=== PATIENT | male | born 1975 | race Caucasian/White ===

== ENCOUNTER 2023-03-02 19:58 | Emergency (ER) | payer OTHER, SELFPAY ==
--- NOTE | ~2023-03-02 | CT_ITS ---
EXAMINATION: CT abdomen pelvis w con DATE: 03/02/2023 21:22 INDICATION: Epigastric and right upper quadrant abdominal pain, nausea TECHNIQUE: Computed tomography (CT) of the abdomen and pelvis was performed with 100 CC Omnipaque 350 intravenous contrast. Automated exposure control and iterative reconstruction technique were employe d. Exam dose: 1490.97 mGy-cm total exam DLP. COMPARISON: None. FINDINGS: The lung bases are clear. Normal heart size. No pericardial or pleural effusion. The liver, gallbladder, bile ducts, pancreas, pancreatic duct, spleen and adrenal glands are unremark able. No renal mass lesion or urinary tract calculus or hydroureteronephrosis. The urinary bladder is sedrick l. Mild prostate enlargement and calcification. Normal caliber of the abdominal aorta. No intraperitoneal or retroperitoneal or pelvic mass lesion or adenopathy or ascites is detected. There are nondilated fluid containing small bowel segments with occasional air-fluid levels which may be due to enteritis or mild adynamic ileus. Normal appendix. There is a prominent amount of fecal material in the colon. No bowel obstruction or intraperitoneal free air. Included skeletal structures are unremarkable, without suspicious osteolytic or osteoblastic lesions. IMPRESSION: Nondilated fluid containing small bowel segments with scattered air-fluid levels, which may be secondary to enteritis Normal appendix Prominent amount fecal material in the colon No bowel obstruction or free air Reviewed, dictated and finalized at [facility] Reviewed, dictated and finalized at [facility] IMPRESSION: Nondilated fluid containing small bowel segments with scattered ai r-fluid levels, which may be secondary to enteritis Normal appendix Prominent amount fecal material in the colon No bowel obstruction or free air
[2023-03-02 20:01] VITALS: BP 161/84; PULSE 92; RESP 16; TEMP 36.7; O2SAT 100
[2023-03-02 20:32] LABS: Basophils Percent Auto 0.4 % (0.2-1.2); Eosinophils Absolute Auto 0.2 K/mm3 (0-0.3); Eosinophils Percent Auto 1.3 % (0-4.4); Hematocrit 44.1 % (42.0-52.0); Hemoglobin 14.8 g/dL (14.0-18.0); Immature Granulocyte Absolute 0.02 K/mm3 (0.00-0.031); Immature Granulocyte Percent A 0.2 % (0-0.5); Lymphocytes Absolute Auto 1.19 K/mm3 (0.9-3.2); Lymphocytes Percent Auto 10.6 % (18.3-44.2); Mean Corpuscular HGB Conc 33.6 g/dl (32-36); Mean Corpuscular Hemoglobin 29.3 pg (26-34); Mean Corpuscular Volume 87.3 fl (80-100); Mean Platelet Volume 9.9 fl (7.4-10.4); Monocytes Absolute Auto 0.9 K/mm3 (0.1-0.6); Monocytes Percent Auto 7.6 % (2.6-8.5); Neutrophils Percent Auto 79.9 % (45.5-73.1); Platelet Count Result 228 k/mm3 (150-375); Red Blood Count 5.05 M/mm3 (4.6-6.20); Red Cell Distribution Width 12.3 % (11.5-14.5); White Blood Count 11.2 K/mm3 (4.5-10.0)
[2023-03-02 20:43] LABS: Alanine Aminotransferase 43 U/L (6-50); Albumin Level 4.3 g/dL (3.5-5.1); Alkaline Phosphatase 57 U/L (38-126); Anion Gap 5 mmol/L (8-16); Aspartate Amino Transferase 48 U/L (17-59); Bilirubin,Total 0.6 mg/dL (0.2-1.3); Blood Urea Nitrogen 15 mg/dL (9-20); Calcium 8.7 mg/dL (8.4-10.2); Carbon Dioxide 30 mmol/L (22-30); Chloride 102 mmol/L (98-107); Estimated CRCL calculation 112 ml/min; Estimated Glomerular Filt Rate > 60; Glucose 114 mg/dL (65-110); Lipase 42 U/L (23-300); Potassium 3.6 mmol/L (3.4-5.0); Sodium 137 mmol/L (137-145)
[2023-03-02] MEDS: MORPHINE SULFATE (*CRX) 4 MG/ML INJ IV PUSH (21:28)
[2023-03-02] MEDS: ONDANSETRON INJ 4 MG/2 ML VIAL IV PUSH (21:28)
[2023-03-02] MEDS: SODIUM CHLORIDE 0.9% IV 1,000 ML 999 ML IV CONT (21:28)
[2023-03-02 21:32] LABS: Appearance Urine Clear (Clear); Bilirubin Urine Negative (Negative); Blood Urine Negative (Negative); Color Urine Yellow (Yellow); Glucose Urine UA Negative (Negative); Ketones Urine Negative (Negative); Leukocyte Esterase Ur Negative LEU/UL (Negative); Nitrate Urine Negative (Negative); Protein Urine Negative (Negative); Specific Grav Ur 1.021 (1.001-1.035); Urobilinogen Urine 0.2 mg/dL (<2.0); pH Urine 5.5 (5.0-9.0)
[2023-03-02 21:34] LABS: Add Urine Microscopic? NO
--- NOTE | 2023-03-02 21:52 | ED.ABDPAIN ---
HPI - Abdominal Pain General Chief Complaint: Abdominal Pain Stated Complaint: abd pain Time Seen by Provider: 03/02/23 20:14 Source: patient Mode of arrival: ambulatory Limitations: no limitations History of Present Illness HPI narrative: Patient is a 47-year-old male who presents ED with report of epigastric and RUQ abdominal pain. Patient reports he developed pain last night after eating dinner. Pain persisted throughout the night. Patient then ate a chicken chilango sandwich for breakfast this morning and developed worsening pain. Pain has been constant since then. Patient felt like he had excess gas and tried taking Gas-X and Pepto-Bismol without improvement. He takes [place] chronically for back pain and has taken this today as well without improvement. He reports nausea, denies vomiting. Denies diarrhea or constipation. He states he had 2 bowel movements today. Denies fevers. Denies urinary symptoms. 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 Related Data Allergies Allergy/AdvReac Type Severity Reaction Status Date / Time No Known Allergies Allergy Verified 03/02/23 19:59 Review of Systems Review of Systems: CONSTITUTIONAL: Denies fever, chills, or sweats. CARDIOVASCULAR: Denies chest pain. RESPIRATORY: Denies dyspnea. GASTROINTESTINAL: See HPI. GENITOURINARY: Denies dysuria or hematuria. SKIN: Denies rash or itching. MUSCULOSKELETAL: Denies back pain, joint pain, or myalgia. All systems reviewed & are unremarkable except as noted in HPI and below Exam Narrative: GENERAL: Well appearing, obese with BMI of 36.9, non-toxic, in no acute distress. HEAD: Normocephalic, atraumatic. NECK: Supple. No adenopathy, no masses. RESPIRATORY: Airway patent, respirations nonlabored. Clear to auscultation bilaterally, no rales, rhonchi, wheezing. CARDIOVASCULAR: Regular rate and rhythm without murmurs, rubs, or gallops. Peripheral pulses 2+ and equal bilaterally. ABDOMINAL: Soft, tenderness in epigastric region, minimal tenderness in right upper quadrant, no other significant focal tenderness throughout abdomen. Nondistended, no hepatosplenomegaly. Normoactive BS. MUSCULOSKELETAL: Moves all extremities. Strength/ROM intact without gross deformities. SKIN: Warm, dry, normal color. No rashes. NEURO: A&O X3. Speech clear. Cranial nerves II-XII grossly intact. Steady gait. No ataxic movements. PSYCHIATRIC: Appropriate mood and affect. Normal interaction. Course Vital Signs Vital signs: Vital Signs Temperature 98.1 F 03/02/23 20:01 Pulse Rate 92 03/02/23 20:01 Respiratory Rate 16 03/02/23 20:01 Blood Pressure 161/84 H 03/02/23 20:01 Pulse Oximetry 100 03/02/23 20:01 Oxygen Delivery Room Air 03/02/23 20:01 Temperature 98.1 F 03/02/23 20:01 Pulse Rate 92 03/02/23 20:01 Respiratory Rate 16 03/02/23 20:01 Blood Pressure 161/84 H 03/02/23 20:01 Pulse Oximetry 100 03/02/23 20:01 Oxygen Delivery Room Air 03/02/23 20:01 MDM - Abdominal Pain MDM Narrative Medical decision making narrative: Patient presented to ED with epigastric and right upper quadrant abdominal pain, sent from urgent care to rule out gallbladder etiology. Patient's vital stable upon arrival. Afebrile. Patient in no acute distress. CBC with leukocytosis of 11.2. CMP unremarkable. Normal LFTs and lipase. Urinalysis negative. CT scan of abdomen pelvis obtained and showing findings consistent with enteritis, large amount of stool throughout the colon. No bowel obstruction. Normal appendix and gallbladder. Patient was updated on lab and imaging findings. He is feeling better with supportive therapy. He was given GI cocktail as well as Bentyl, and reported significant improvement with these medications. Discussed possibility of gastritis, acid reflux contributing to symptoms. Will prescribe omeprazole. Also discussed constipation management as patient is on [place] therapy due to chronic back pa
[2023-03-02] MEDS: DICYCLOMINE HCL 10 MG CAPSULE 20 MG PO (22:18)
[2023-03-02] MEDS: BELLADONNA ALK/PHENOB ELIX 10 ML, MAG HYDROX/ALUMINUM HYD/SIMETH 30 ML, LIDOCAINE HCL 2... PO (22:18)
== END 2023-03-02 23:10 | disposition home or self-care (01) ==
PROVIDERS: Preventive Medicine Aerospace Medicine; Emergency Provider Physician Assistant; PCP Internal Medicine Infectious Disease
DX: K52.9 Noninfective gastroenteritis and colitis, unspecified (principal); K59.00 Constipation, unspecified
CPT/HCPCS: 36415; 74177; 80053; 81003; 83690; 85025; 96361; 96374; 96375; 99284; A9270; J2270; J2405; J7030; Q9967

== ENCOUNTER 2024-08-28 15:52 | Emergency (ER) | payer OTHER, BC, SELFPAY ==
[2024-08-28 16:39] VITALS: BP 143/102; PULSE 84; RESP 18; TEMP 36.4; O2SAT 99
[2024-08-28] MEDS: TETANUS,DIPHTHERIA,AC PERTUSSIS ADULT (0.5 ML) BOOSTRIX IM (18:22)
[2024-08-28] MEDS: AMOXICILLIN/CLAVULANATE K 875-125 MG TAB 1 TABLET PO (18:23)
--- NOTE | 2024-08-28 19:02 | ED.ANIMALBIT ---
HPI - Animal Bite General Chief Complaint: Animal Bite Stated Complaint: dog bite Time Seen by Provider: 08/28/24 17:11 History of Present Illness HPI narrative: Patient is 48-year-old male who presents to the ER after being bit in the mouth by a dog prior to arrival. He reports the dog bit him in the mouth and punctured the gumline she on his lower, inner jaw. Patient is unsure when his last tetanus shot was administered. He is also unsure whether not the dog is up-to-date on vaccinations, but the dog is showing no signs of rabies. Patient denies any other medical history related to this ER visit. He denies any other wounds on his body, recent fevers, recent signs/symptoms of illness or infection, headache, facial trauma. Related Data Home Medications ?Medication ?Instructions ?Recorded ?Confirmed ?Last Taken ?Type alprazolam 0.5 mg tablet (Xanax) 0.5 mg PO QHS PRN 08/25/24 08/25/24 Unknown History hydrochlorothiazide 25 mg tablet 25 mg PO DAILY 08/25/24 08/25/24 Unknown History hydrocodone 10 mg-acetaminophen 1 tablet PO QHS PRN 08/25/24 08/25/24 Unknown History 300 mg tablet lamotrigine 100 mg tablet 100 mg PO DAILY 08/25/24 08/25/24 Unknown History lisdexamfetamine 60 mg capsule 60 mg PO DAILY 08/25/24 08/25/24 Unknown History (Vyvanse) pantoprazole 20 mg tablet,delayed 20 mg PO QAM 08/25/24 08/25/24 Unknown History release rivaroxaban 20 mg tablet (Xarelto) 20 mg PO DAILY 08/25/24 08/25/24 Unknown History Allergies Allergy/AdvReac Type Severity Reaction Status Date / Time semaglutide (From [place]) AdvReac Intermediate Abdominal Verified 08/28/24 16:40 Pain Review of Systems Review of Systems: All systems reviewed & are unremarkable except as noted in HPI and below PMFSH Past Medical History Medical History Pulmonary embolism Dvt femoral (deep venous thrombosis) Social History Social History Smoking status: Current some day smoker Tobacco type: e-cigarettes/vaping Alcohol intake: never Substance use: current Substance use type: marijuana Do You Feel Safe in your Home?: Yes Lack of Transportation: No Lack of Food: Sometimes True Current Housing: I Have Housing Concerned About Future Housing: No Difficulty Paying Gas/Electric Bills: YES Difficulty Paying for Meds: No Currently Unemployed: No Education: High School Diploma/GED Difficulty w/ Childcare or Family Care: No Exam Narrative: GENERAL: Well appearing, well-nourished, non-toxic, in no acute distress. HEAD: Normocephalic, R inner lip puncture wound, bleeding controlled. NECK: Supple. No adenopathy, no masses. RESPIRATORY: Airway patent, respirations nonlabored. Clear to auscultation bilaterally, no rales, rhonchi, wheezing. CARDIOVASCULAR: Regular rate and rhythm without murmurs, rubs, or gallops. Peripheral pulses 2+ and equal bilaterally. ABDOMINAL: Soft, nontender, nondistended, no hepatosplenomegaly. Normoactive BS. MUSCULOSKELETAL: Moves all extremities. Strength/ROM intact without gross deformities. SKIN: Warm, dry, normal color. No rashes. NEURO: A&O X3. Speech clear. Cranial nerves II-XII grossly intact. Steady gait. No ataxic movements. PSYCHIATRIC: Appropriate mood and affect. Normal interaction. Course Vital Signs Vital signs: Vital Signs Temperature 36.4 C 08/28/24 16:39 Pulse Rate 84 08/28/24 16:39 Respiratory Rate 18 08/28/24 16:39 Blood Pressure 143/102 H 08/28/24 16:39 Pulse Oximetry 99 08/28/24 16:39 Temperature 36.4 C 08/28/24 16:39 Pulse Rate 84 08/28/24 16:39 Respiratory Rate 18 08/28/24 16:39 Blood Pressure 143/102 H 08/28/24 16:39 Pulse Oximetry 99 08/28/24 16:39 MDM - Animal Bite MDM Narrative Medical decision making narrative: Patient is 48-year-old male who presents to the ER after being bit in the mouth by a dog prior to arrival. He reports the dog bit him in the mouth and punctured the gumline she on his lower, inner jaw. Patient is unsure when his last tetanus shot was administered. He is also unsure whether not the dog is up-to-date on vaccinations, but the dog is showing no signs of rabies. Patient denies any other medical history related to this ER visit. He denies any other wounds on his body, recent fevers, recent signs/symptoms of illness or infection, headache, facial trauma. Labs Ordered: None necessary Imaging Ordered: None necessary Medications given: Augmentin p.o., tetanus immunization Diagnosis: Dog bite Patient Education/Shared MDM: Results of examination shared with patient. He will be given his 1st dose of Augmentin here in the ER and tetanus vaccine. Patient should follow-up with his primary care provider with any concerning or worsening symptoms. Patient did complete his full dose of antibiotics at home. Pt and his significant other verbalized understanding and are agreement with plan for discharge. Vital Signs stable at time of discharge. All questions answered. Differential Diagnosis Differential diagnosis: Likely bite by animal, dog bite and rabies contact Discharge Plan Discharge Clinical Impression: Bite by animal, Dog bite Patient Disposition: Home, Self-Care Condition: Stable Instructions: Antibiotic Form, Animal Bite (ED) Additional Instructions: Please return to the ER with an worsening symptoms. Follow-up with primary care provider as needed. Take all medications as prescribed (stop taking your current amoxicillin and complete Augmentin until prescription complete). Patient Language: Kazakh Prescriptions: New amoxicillin-pot clavulanate 875-125 mg tablet 1 tablet PO Q12H Qty: 20 0RF No Action Xarelto 20 mg tablet 20 mg PO DAILY Rx Instructions: must administer with evening meal hydrochlorothiazide 25 mg tablet 25 mg PO DAILY lisdexamfetamine [Vyvanse] 60 mg capsule 60 mg PO DAILY lamotrigine 100 mg tablet 100 mg PO DAILY hydrocodone-acetaminophen 10-300 mg tablet 1 tablet PO QHS PRN alprazolam [Xanax] 0.5 mg tablet 0.5 mg PO QHS PRN pantoprazole 20 mg tablet,delayed release (DR/EC) 20 mg PO QAM ketorolac 10 mg tablet 10 mg PO Q8H PRN (Reason: pain) 5 Days Qty: 20 0RF Rx Instructions: maximum total duration of 5 days from all oral, intranasal, or parenteral formulations prednisone 50 mg tablet 50 mg PO DAILY 5 Days Qty: 5 0RF Follow-up/Referrals: Jesu,Michelle Candelaria [Primary Care Provider] - Time of Disposition: 19:09
--- NOTE | 2024-08-28 19:05 | PC.NURSE ---
Pt. upset with wait for d/c instructions and left ED prior to receiving them.
--- OUTSIDE RECORDS SUMMARY | 2024-09-02 09:21 | XMS_ITS | Referral Summary ---
Author Organization [facility] Address [address] [place] [address] Care Team Providers Care Director Of Enterprise Strategy Name Role Phone Unknown, Notinfile Unavailable Unavailable Genie Garcia MD Primary Care Provider [phone] Allergies No known active allergies Medications metoclopramide (REGLAN) 10 mg tablet Take 1 tablet (10 mg total) by mouth 2 (two) times a day Take 1 tablet before meals. 10 tablet 9 Active clonazePAM (KlonoPIN) 1 mg tablet Take 1 tablet (1 mg total) by mouth 2 (two) times a day for 10 days 20 tablet 9 Active famotidine (PEPCID) 40 mg tablet Take 1 tablet (40 mg total) by mouth nightly 20 tablet 9 Active valACYclovir (VALTREX) 1 gram tablet Take 1,000 mg by mouth daily 2 Active traZODone (DESYREL) 50 mg tablet trazodone 50 mg tablet TK 1 TO 2 TS PO HS Active prazosin (MINIPRESS) 1 mg capsule TAKE 1-2 CAPSULES BY MOUTH AT BEDTIME DIRECTED 2 Active Vyvanse 60 mg capsule Take 60 mg by mouth every morning 2 Active lidocaine (LIDODERM) 5 % USE 1 TO 2 PATCHES EXTERNALLY ONCE DAILY NEEDED 2 Active lamoTRIgine (LaMICtal) 25 mg tablet TAKE 1 TABLET BY MOUTH DAILY [id number], THEN INCREASE TO 2 TABLETS DAILY 2 Active cyclobenzaprine (FLEXERIL) 10 mg tablet TAKE 1 TABLET BY MOUTH EVERY 8 TO 12 HOURS NEEDED 2 Active tadalafiL (CIALIS) 5 mg tablet Take 1 tablet (5 mg total) by mouth daily 90 tablet 2 2 Active clomiPHENE (CLOMID) 50 mg tablet Take 1 tablet (50 mg total) by mouth every morning q am, as dir 30 tablet 5 2 Active Xarelto 20 mg tablet 2 Active HYDROcodone-aceta minophen (NORCO) 10-325 mg per tablet TAKE 1 TABLET BY MOUTH EVERY 6 TO 8 HOURS NEEDED 2 Active Aimovig Autoinjector 140 mg/mL auto-injector INJECT 140MG UNDER THE SKIN ONCE MONTHLY 2 Active clonazePAM (KlonoPIN) 1 mg tablet Take by mouth 2 (two) times a day as needed 2 Active desvenlafaxine ER 50 mg 24 hr tablet [address] (PROTONIX) 40 mg EC tablet Take 40 mg by mouth daily 2 Active mirabegron ER (Myrbetriq) 50 mg tablet extended release 24 hr Take 1 tablet (50 mg total) by mouth daily 90 tablet 3 2 Active Active Problems Problem Noted Date Diagnosed Date Acne vulgaris 05/24/2022 Hypertensive disorder 05/24/2022 Sexually transmitted disease 05/24/2022 Venous thrombosis 05/24/2022 Viral hepatitis C 05/24/2022 Hypogonadism in male 05/24/2022 Infertility male 05/24/2022 Overactive bladder 04/12/2022 DVT, recurrent, lower extremity, chronic 015 Pulmonary embolism 11/21/2014 Social History Tobacco Use Types Packs/Day Years Used Date Smoking Tobacco: Former Cigarettes Tobacco Cessation:Counseling Given: Not Answered Sex and Gender Information Value Date Recorded Sex Assigned at Not on file Legal Sex Male 11:35 PM FLAME CHANNELER Gender Identity Not on file Sexual Orientation Not on file Last Filed Vital Signs Vital Sign Reading Time Taken Comments Blood Pressure 103/63 10/17/2018 12:30 AM FLAME CHANNELER Pulse 62 10/17/2018 12:30 AM FLAME CHANNELER Temperature 36.6 ??C (97.9 ??F) 10/16/2018 8:19 PM CS T Respiratory Rate 16 10/17/2018 12:30 AM FLAME CHANNELER Oxygen Saturation 100% 10/17/2018 12:30 AM FLAME CHANNELER Inhaled Oxygen Concentration - - Weight 90.7 kg (200 lb) 10/16/2018 8:19 PM FLAME CHANNELER Height 175.3 cm (5' 9 ) 10/16/2018 8:19 PM FLAME CHANNELER Body Mass Index 29.53 10/16/2018 8:19 PM FLAME CHANNELER Plan of Treatment Not on file Insurance [facility] UHC CHOICE PLUS CIGNA ALLEGIANCE CIG[employer] Care Teams Director Of Enterprise Strategy Relationship Specialty [place] [address] [place] [address] PCP - General Internal Medicine 04/06/24 Unknown, Notinfile 03/18/22
--- OUTSIDE RECORDS SUMMARY | 2024-09-02 09:21 | XMS_ITS | CONTINUITY OF CARE DOCUMENT ---
Author Name josseline manjarrez Address Unknown Organization [facility] Address [address] [place] [address] Phone [phone] Care Team Providers Care Supervisor Inspection Room Name Role Phone Marcello Orourke MD Unavailable [phone] DM NAGEL MD Unavailable KEYA SAINZ MD Unavailable [phone] INSURANCE PROVIDERS Payer name Policy type / Coverage type [place] red constitution party ID [facility] Arara [id number]
--- OUTSIDE RECORDS SUMMARY | 2024-09-02 09:21 | XMS_ITS | Clinical Summary ---
Author Organization [facility] Address [address] [address] Phone Care Team Providers Care Aviation Program Manager Name Role Phone Bari Nails MD Primary Care Provider Allergies No known active allergies Medications hydroCHLOROthiaz izzy 12.5 MG Tablet Take 1 tablet every day by oral route in the morning. Active Aimovig 140 MG/ML Solution Auto-injector Inject 140 mg as needed by subcutaneous route as directed. Active Xarelto 20 MG Tablet Take 1 Tablet by mouth daily. Active valACYclovir (VALTREX) 1 GM Tablet TAKE 1 TABLET BY MOUTH EVERY DAY DIRECTED Active Nurtec 75 MG TABLET DISPERSIBLE DISSOLVE 1 TABLET ON THE TONGUE EVERY DAY NEEDED Active lidocaine (LIDODERM) 5 % Patch UNWRAP AND APPLY 1 TO 2 PATCHES EVERY DAY NEEDED Active HYDROcodone-acet aminophen (NORCO) 10-325 MG Tablet TAKE 1 TABLET BY MOUTH EVERY 8 TO 12 HOURS NEEDED FOR LOWER BACK PAIN Active pantoprazole (PROTONIX) 40 MG Tablet Delayed Response take 1 tablet by mouth every day as directed 022 Active Vyvanse 60 MG CapsuleIndicatio ns:Attention Deficit Hyperactivity Disorder Take 1 Capsule by mouth daily. Indications: Attention Deficit Hyperactivity Disorder 30 Capsule 024 Active Vyvanse 60 MG CapsuleIndicatio ns:Attention Deficit Hyperactivity Disorder Take 1 Capsule by mouth daily. Indications: Attention Deficit Hyperactivity Disorder 30 Capsule 024 Active Vyvanse 60 MG CapsuleIndicatio ns:Attention Deficit Hyperactivity Disorder Take 1 Capsule by mouth daily. Indications: Attention Deficit Hyperactivity Disorder 30 Capsule Active ALPRAZolam (XANAX) 0.5 MG TabletIndication s:Generalized anxiety disorder Take 1 Tablet by mouth 3 times daily as needed for Anxiety. 90 Tablet 3 Active lamoTRIgine (LaMICtal) 100 MG Tablet Take 1 Tablet by mouth daily. 30 Tablet 3 Active Lisdexamfetamine Dimesylate 60 MG CapsuleIndicatio ns:Attention Deficit Hyperactivity Disorder Take 1 Capsule by mouth daily for 30 days. Indications: Attention Deficit Hyperactivity Disorder 30 Capsule 025 2024 Active Lisdexamfetamine Dimesylate 60 MG CapsuleIndicatio ns:Attention Deficit Hyperactivity Disorder Take 1 Capsule by mouth daily for 30 days. Indications: Attention Deficit Hyperactivity Disorder 30 Capsule 025 2024 Active Lisdexamfetamine Dimesylate 60 MG CapsuleIndicatio ns:Attention Deficit Hyperactivity Disorder Take 1 Capsule by mouth daily for 30 days. Indications: Attention Deficit Hyperactivity Disorder 30 Capsule 025 2024 Active prazosin (MINIPRESS) 1 MG Capsule Take 1 Capsule by mouth nightly. Uses PRN 30 Capsule 2 Active ALPRAZolam (XANAX) 0.5 MG TabletIndication s:Generalized anxiety disorder Take 1 Tablet by mouth 3 times daily as needed for Anxiety. 90 Tablet 3 024 2024 Discontinued(R eorder) lamoTRIgine (LaMICtal) 100 MG Tablet Take 1 Tablet by mouth daily. 30 Tablet 3 024 2024 Discontinued(R eorder) prazosin (MINIPRESS) 1 MG Capsule Take 1 Capsule by mouth nightly. 30 Capsule 3 024 2024 Discontinued buPROPion (WELLBUTRIN) 150 MG XL tablet Take 1 Tablet by mouth every morning. 90 Tablet 024 2024 Discontinued(S izzy effects) Active Problems Problem Noted Date Diagnosed Date Attention deficit hyperactivity disorder, combin ed type 05/20/2023 Generalized anxiety disorder 08/30/2021 Mixed bipolar I disorder 04/12/2021 Encounters Date Type Department Care Team Description 08/29/2024 Refill [facility] [address] [place] [address] [phone] Mona Vaz APRN, CNP Medication Refill 08/26/2024 11:00 AM COKE INSPECTOR Office Visit [facility] [address] [place] [address] [phone] Mona Vaz APRN, BARI Mixed bipolar I disorder (HCC) (Primary Dx); Generalized anxiety disorder; Attention deficit hyperactivity disorder (ADHD), predominantly inattentive type 08/26/2024 Travel 07/27/2024 Telephone [facility] [address] [place] [address] [phone] Mona Vaz APRN, CNP 07/14/2024 Telephone [facility] [address] [place] [address] [phone] Mona Vaz APRN, BARI from Last 3 Months Family History Medical History Relation Name Comments Attention Deficit Hyperactivity Disorder Brother Attention Deficit Hyperactivity Disorder Daughter x3 Alcohol Abuse Father Suicide Attempts Father suicide Alcohol Abuse Maternal Grandfather Alcohol Abuse Maternal Grandmother Anxiety disorder Mother Attention Deficit Hyperactivity Disorder Mother Depression Mother Diabetes Mother Alcohol Abuse Paternal Grandfather Heart Disease Paternal Grandfather Alcohol Abuse Paternal Grandmother Relation Name Status Comments Brother Daughter x3 Alive Father Maternal Grandfather Maternal Grandmother Mother Paternal Grandfather Paternal Grandmother Social History Tobacco Use Types Packs/Day Years Used Date Smoking Tobacco: Former Cigarettes Q uit: 2018 Smokeless Tobacco: Never Tobacco Cessation:Counseling Given: Not Answered Alcohol Use Standard Drinks/Week Comments Not Currently 0 (1 standard drink = 0.6 oz pur e alcohol) PHQ-2 Answer Date Recorded Total Score - Questions 1-9 10 05/11 Sexually Active Control Partners Comments Yes Sex and Gender Information Value Date Recorded Sex Assigned at Not on file Legal Sex Male 1:47 PM CDT Gender Identity Male 02/23/2024 1:47 PM CDT Sexual Orientation Straight 02/23/2024 1: 47 PM CDT Last Filed Vital Signs Vital Sign Reading Time Taken Comments Blood Pressure 146/83 08/26/2024 11:21 AM COKE INSPECTOR Pulse 93 08/26/2024 11:11 AM COKE INSPECTOR Temperature - - Respiratory Rate 20 08/26/2024 11:11 AM COKE INSPECTOR Oxygen Saturation 100% 08/26/2024 11:11 AM COKE INSPECTOR Inhaled Oxygen Concentration - - Weight 97.5 kg (215 lb) 08/26/2024 11:11 AM COKE INSPECTOR Height 175.3 cm (5' 9 ) 08/26/2024 11:11 AM COKE INSPECTOR Body Mass Index 31.75 08/26/2024 11:11 AM COKE INSPECTOR Plan of Treatment Upcoming Encounters Date Type Department Care Team (Late st Contact Info) Description 11/25/2024 10:45 AM CDT Office Visit [facility] [address] [place] [address] [phone] Mona Vaz, BUSINESS SERVICES SPECIALIST SALES, BENCH WORKER [address] [place] [address] [phone] (Work) Health Maintenance Due Date Last Done Comments Hepatitis C Virus (HCV) Screening 1975 Hepatitis B Immunization (2 of 3 - 19+ 3-dose series) 12/06/2015 11/08/2015 Colonoscopy 2021 Colorectal Cancer Screening 2021 SARS-COV-2 Immunization ( season) 2024 05/18/2023, 06/07/2022, 05/13/2022, Additional history exists Respiratory Syncytial Virus (RSV) Immunization (Adult) (1 - 1-dose 75+ series) 12/20/2051 TdaP Immunization Completed 11/09/2018, , 08/11/2008 Influenza Immunization Completed , 04/19/2023, 06/07/2022, Additional history exists Meningococcal Immunization (ACWY) Aged Out No longer eligible based on patient's age to complete this topic Pneumococcal Immunization Combined Aged Out No longer eligible based on patient's age to complete this topic Rotavirus Immunization Aged Out No lo nger eligible based on patient's age to complete this topic Insurance CIGNA [facility] Care Teams Aviation Program Manager Relationship Specialty [place] [address] [place] [id number] PCP - General Internal Medicine 05/21/24
--- OUTSIDE RECORDS SUMMARY | 2024-09-02 09:21 | XMS_ITS | Clinical Summary ---
Author Organization [facility] Address [address] [place] [address] Care Team Providers Care Mat Sewer Name Role Phone Unknown, Notinfile Unavailable Unavailable Genie Garcia MD Primary Care Provider [phone] Allergies No known active allergies Medications metoclopramide [...] tablet TAKE 1 TABLET BY MOUTH DAILY [id number], THEN INCREASE TO 2 TABLETS DAILY 2 [...] lower extremity, chronic 015 Pulmonary embolism 11/21/2014 Medical History Medical History Date Comments DVT (deep vein thrombosis) in x5 PE (pulmonary thromboembolism) (CMS/HCC) ([facility]) x2 Social History Tobacco Use Types Packs/Day Years Used Date Smoking Tobacco: Former Cigarettes Tobacco Cessation:Counseling Given: Not Answered Sex and Gender Information Value Date Recorded Sex Assigned at Not on file Legal Sex Male 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 Gender Identity Not on file Sexual Orientation Not on file Obstetrics History Last Filed Vital Signs Vital Sign Reading Time Taken Comments Blood Pressure 103/63 10/17/2018 12:30 AM GANG DRILL OPERATOR Pulse 62 10/17/2018 12:30 AM GANG DRILL OPERATOR Temperature 36.6 ??C (97.9 ??F) 10/16/2018 8:19 PM CS T Respiratory Rate 16 10/17/2018 12:30 AM GANG DRILL OPERATOR Oxygen Saturation 100% 10/17/2018 12:30 AM GANG DRILL OPERATOR Inhaled Oxygen Concentration - - Weight 90.7 kg (200 lb) 10/16/2018 8:19 PM GANG DRILL OPERATOR Height 175.3 cm (5' 9 ) 10/16/2018 8:19 PM GANG DRILL OPERATOR Body Mass Index 29.53 10/16/2018 8:19 PM GANG DRILL OPERATOR Plan of Treatment Health Maintenance Due Date Last Done Comments Colon Cancer Screening-Colonoscopy 1976 Depression Screening 1976 Pneumococcal vaccine <65 (1 of 2 - PCV) 1982 Regular Well Visit/Exam 18-64 1994 Covid-19 Vaccine (2023-2 5 season) 2024 08/13/2021, 08/02/2021, 10/12/2020, Additional history exists Influenza Vaccine (#1) 2024 , 04/20/2018, 05/15/2017, Additional history exists DTaP/Tdap/Td Vaccine (4 - Td or Tdap) 11/09/2028 11/09/2018, 03/29/2015, 08/11/2008 Hepatitis C Screening Completed 05/24/2022 Insurance [facility] CHO[facility] PLUS CIGNA ALLEGIANCE [facility] [place] [address] Care Teams Mat Sewer Relationship Specialty [place] [address] [place] [address] PCP - General Internal Medicine 04/06/24 Unknown, Notinfile 03/18/22
--- OUTSIDE RECORDS SUMMARY | 2024-09-02 09:21 | XMS_ITS | Continuity of Care Document ---
Author Organization [facility] Address [address] [place] [address] Phone Care Team Providers Care District Captain Name Role Phone Edmundo Robison Unavailable Unavailable Advance Directives Directive Yes / No Effective Date File Name No Information Encounters Encounter Description Practice Location Reason(s) For Visit Diagnoses Date Provider Providers Copied on Encounter [facility], [address] [place] [address], [facility], tel:[phone] *[facility] No Information Enriqueta Wyatt. [address] [place] [address], [facility], [place]. tel:[phone] Family History Family Member Type Diagnosis Age At Onset No Information Payers Payer name Insurance type Covered democrat ID Authoriza tion(s) No Information Social History Type Description Quantity Date Captured Comments Sex Male Smoking Status No Information Chief Complaint And Reason For Visit No Information Reason For Referral Reason For Referral No Information History Of Present Illness Encounter Date Complaint History Of Prese nt Illness No Information Functional Status Date Functional Assessmen t No Information Instructions Date Instruction Additional Infor mation No Information Assessments Type Assessment Date No Information Patient Care Teams Name Effective Dates (start - stop) Status Members No Information
--- OUTSIDE RECORDS SUMMARY | 2024-09-02 09:21 | XMS_ITS | Clinical Summary ---
Author Organization [employer] [facility] Address [address] [address] Care Team Providers Care Automobile Taillight Assembler Name Role Phone Genie Garcia MD Primary Care Provider [phone] Allergies Active Allergy Reactions Criticality Noted Date Comments Semaglutide (Weight Loss) Abdominal Pain Low 04/30/2024 Elevation in lipase. Mild pancreatitis suspected. Medications erenumab-aooe (Aimovig Autoinjector) 140 mg/mL Auto-Injector Inject 140 mg by subcutaneous injection one time only. 03/15/20 22 Active HYDROcodone-ac etaminophen (NORCO) 10-325 mg Tablet Take 1 Tablet by mouth every 8 hours as needed. Pt takes 3 times a day 03/22/20 22 Active valACYclovir (VALTREX) 1 gram tablet Take 1,000 mg by mouth daily. 04/15/20 22 Active lisdexamfetami ne (Vyvanse) 60 mg capsule Take 60 mg by mouth daily in the morning. 05/04/20 22 Active testosterone cypionate (DEPO-TESTOSTE RAI) 200 mg/mL Oil Inject 200 mg by intramuscular injection every 2 weeks. Pt will restart after seeing urologist Active lidocaine (LIDODERM) 5 % Adhesive Patch, Medicated Apply 1 Patch to affected area 1 time daily as needed. Pt uses as needed states maybe monthly 04/19/20 22 Active rimegepant (Nurtec ODT) 75 mg Tablet, Rapid Dissolve Take 50 mg by mouth 1 time daily as needed. As needed with migraine Active betamethasone, augmented (DIPROLENE-AF) 0.05 % CreamIndicatio ns:Eczema, unspecified type Apply to affected area 2 times daily. 60 Gram 08/24/20 23 Active lamoTRIgine (LaMICtal) 100 mg tablet Take 100 mg by mouth daily. Active cyclobenzaprin e (FLEXERIL) 10 mg tablet Take 1 Tablet by mouth 2 times daily. 01/16/20 24 Active mirabegron (MYRBETRIQ) 50 mg Extended Release 24 hour tabletIndicati ons:Urinary frequency,Noct uria Take 1 Tablet (50 mg) by mouth daily. 30 Tablet 1 03/02/20 24 Active ALPRAZolam (XANAX) 0.25 mg tablet Take 1 Tablet by mouth 3 times daily. 02/13/20 24 Active pantoprazole sodium (PANTOPRAZOLE ORAL) Take by mouth. Activ e folic acid/multivit- min/lutein (CENTRUM SILVER ORAL) Take by mouth. Ac tive pantoprazole (PROTONIX) 40 mg Tablet, Delayed Release (E.C.) take 1 tablet by mouth every day as directed 90 Tablet 3 05/19/20 Active fluticasone propionate (FLONASE) 50 mcg/spray [place], Suspension nasal inhalerIndicat ions:Acute non-recurrent maxillary sinusitis Administer 2 Sprays in each nostril daily. 16 Gram 08/16/19 25 Active Xarelto 20 mg TabletIndicati ons:History of pulmonary embolism TAKE 1 TABLET BY MOUTH DAILY WITH SUPPER. 90 Tablet 1 08/17/19 25 Active rivaroxaban (Xarelto) 20 mg TabletIndicati ons:History of pulmonary embolism Take 1 Tablet (20 mg) by mouth daily with supper. 90 Tablet 1 02/13/20 24 2024 Discontinued amoxicillin (AMOXIL) 875 mg tabletIndicati ons:Acute non-recurrent maxillary sinusitis Take 1 Tablet (875 mg) by mouth every 12 hours for 10 days. 20 Tablet 08/16/19 25 2024 Active Problems Problem Noted Date Diagnosed Date Hx of migraine headaches 04/04/2023 Eczema 04/04/2023 Mixed anxiety and depressive disorder 04/03/2023 History of pulmonary embolism 04/03/2023 Overview (04/03/2023): two episodes. 2000 after 11 months interferon for Hep C. 2nd occurence 2010 - spontaneous. Attention deficit disorder (ADD) in adult 2022 Spondylosis of lumbar region without myelopathy or radiculopathy 04/03/2023 Current every day vaping 04/03/2023 History of hepatitis C 04/03/2023 Overview (04/03/2023): levels undeterctable since treatment in 1999. Hypertensive disorder 05/24/2022 Hypogonadism in male 05/24/2022 Overactive bladder 04/12/2022 Resolved Problems Problem Noted Date Diagnosed Date Resolved Date Pulmonary embolism 11/21/2014 Encounters Date Type Department Care Team Description 09/01/2024 Refill [facility] [place] [address] [place] [address] Genie Garcia MD 08/17/2024 1:40 PM HEALTH EDUCATION SPECIALIST Procedure visit [facility] [place] [address] [place] [address] Issue of repeat prescription (Primary Dx) 08/16/2024 1:30 PM HEALTH EDUCATION SPECIALIST Video Visit [facility] [address] [place] [address] Blessing Marti, RITA Acute non-recurrent maxillary sinusitis (Primary Dx); Current every day vaping 08/16/2024 Refill [facility] [address] [place] [address] Genie Garcia MD History of pulmonary embolism 1999 and 2009. 06/30/2024 Refill [facility] [place] [address] [place] [address] Genie Garcia MD 06/14/2024 External Device Data [facility] ABSTRACTION Provider, Abstract 06/09/2024 External Device Data [facility] Provider, Abstract from Last 3 Months Immunizations Immunization Administration Dates Next Due INFLUENZA VACCINE TRIVALENT SPLIT VIRUS, (6 MOS UP), 0.5ML (PF), IM 05/12/2024 Family History Medical History Relation Name Comments Alcohol abuse Father Suicidality Father Arthritis Mother Diabetes Mother Relation Name Status Comments Daughter 1 Alive Daughter 2 Alive Daughter 3 Alive Daughter 4 Alive Daughter 5 Alive Father Half-Brother 1 Alive Half-Brother 2 Alive Maternal Grandfather Maternal Grandmother Alive Mother Alive Paternal Grandfather Paternal Grandmother Alive Son Alive Social History Tobacco Use Types Packs/Day Years Used Date Smoking Tobacco: Former Cigarettes Smokeless Tobacco: Never Tobacco Cessation:Counseling Given: No Alcohol Use Standard Drinks/Week Comments Never 0 (1 standard drink = 0.6 oz pur e alcohol) Sex and Gender Information Value Date Recorded Sex Assigned at Male 04/08/2023 7:29 PM CDT Legal Sex Male 2:53 PM CDT Gender Identity Male 04/08/2023 7:29 PM CDT Sexual Orientation Straight 04/08/2023 7: 29 PM CDT Last Filed Vital Signs Vital Sign Reading Time Taken Comments Blood Pressure 128/78 04/01/2024 10:30 AM CDT Pulse 116 04/01/2024 10:30 AM CDT Temperature 36.7 ??C (98 ??F) 04/01/2024 10:30 AM CDT Respiratory Rate 18 04/01/2024 10:30 AM CDT Oxygen Saturation 98% 04/01/2024 10:30 AM CDT Inhaled Oxygen Concentration - - Weight 94.3 kg (208 lb) 04/01/2024 10:30 AM CDT Height 175.3 cm (5' 9 ) 04/01/2024 10:30 AM CDT Body Mass Index 30.72 04/01/2024 10:30 AM CDT Plan of Treatment Upcoming Encounters Date Type Department Care Team (Late st Contact Info) Description 09/07/2024 2:30 PM HEALTH EDUCATION SPECIALIST Office Visit [facility] [place] [address] [place] [address] Genie Garcia MD [address] [email or web address] [address] 09/14/2024 10:30 AM HEALTH EDUCATION SPECIALIST Office Visit [facility] [place] [address] [place] [address] Genie Garcia MD [address] [place] [id number] Health Maintenance Due Date Last Done Comments Pre-Diabetes and Diabetes Screening 1976 HEPATITIS B VACCINES (1 of 3 - 19+ 3-dose series) 12/20/1995 COLORECTAL SCREENING 2021 FIT-DNA Q 3 years 2021 FIT/FOBT Q 1 year 2021 Flex Sig/CT Colonography Q 5 years 2021 Colorectal Cancer Screening 02/03/2025 Postponed from 2021 (Patient Refused) DTAP/TDAP/TD VACCINES (2 - T d or Tdap) 03/29/2025 03/29/2015 INFLUENZA VACCINE Completed 05/12/2024, 05/11/2013, 08/11/2012 Insurance RX [employer] RX Member Subscriber Plan / Payer (Ef fective 2022-Present) Name:Paul Elam Relation to Subscriber:Self Name:Paul Elam Subscriber ID:Not on file Payer ID:Not on file Group ID:[id number] Type:RX Commercial Address: [place] [employer] * Guarantor: [employer]) Account Type Relation to Patient Date of Phone Billing Address Corporate Employer ATTN: MARGARITO RICO [address] [address] [employer] Care Teams Automobile Taillight Assembler Relationship Specialty Start Date End Date Genie Garcia MD [address] [place] [address] [place] [address] PCP - General Internal Medicine 01/06/24
== END 2024-08-28 19:17 | disposition home or self-care (01) ==
PROVIDERS: Emergency Provider Registered Nurse; PCP Internal Medicine Infectious Disease
DX: S01.552A Open bite of oral cavity, initial encounter (principal); Z23 Encounter for immunization; Z86.711 Personal history of pulmonary embolism; Z86.718 Personal history of other venous thrombosis and embolism; F17.290 Nicotine dependence, other tobacco product, uncomplicated; W54.0XXA Bitten by dog, initial encounter
CPT/HCPCS: 90471; 90715; 99283; A9270